=== PATIENT | male | born 1985 | race African-American/Black ===

== ENCOUNTER 2018-08-20 02:17 | Emergency (ER) | payer OTHER ==
[~2018-08-20] VITALS: Ht 167.6 cm; Wt 75.3 kg
[2018-08-20 02:21] VITALS: BP 110/80
[2018-08-20] MEDS ORDERED: TDAP [DIPH/PERTUSSIS/TET] 0.5 ML VIAL IM ONE (03:30)
[2018-08-20] MEDS ORDERED: AMOX/CLAVULANATE 875 MG TABLET PO ONE (03:30)
--- NOTE | 2018-08-20 03:46 | NUR ---
PT BEING BOOKED BY OCTAVIO
== END 2018-08-20 06:12 ==
LOC: ER 02:22
DX: S50.11XA Contusion of right forearm, initial encounter (principal); S51.851A Open bite of right forearm, initial encounter; F10.129 Alcohol abuse with intoxication, unspecified; Z91.013 Allergy to seafood; V43.92XA Unspecified car occupant injured in collision with other type car in traffic accident, initial encounter; W50.3XXA Accidental bite by another person, initial encounter; Y93.89 Activity, other specified; Y92.89 Other specified places as the place of occurrence of the external cause; Y99.8 Other external cause status; Y90.9 Presence of alcohol in blood, level not specified
CPT/HCPCS: 73060-TC; 73090-TC